=== PATIENT | male | born 1990 | race Caucasian/White ===

== ENCOUNTER → 2018-02-02 | Outpatient (CLI) | payer OTHER ==
[2018-02-02 17:15] LABS: Hematocrit 36.2 % (37.0-53.0); Hemoglobin 11.8 g/dL (13.5-17.5)
[2018-02-02 17:27] LABS: Protein, Urine Random 75.4 mg/dL (0.0-11.9)
[2018-02-02 17:35] LABS: Albumin, Blood 3.8 g/dL (3.4-5.0); Anion Gap 9 mmol/L (6-16); Blood Urea Nitrogen 50 mg/dL (8-24); Bun/Creatinine Ratio 12.9 (12.0-20.0); CO2, Blood 22 mmol/L (21-32); Calcium, Blood 8.6 mg/dL (8.5-10.1); Chloride, Blood 109 mmol/L (98-108); Creatinine, Blood 3.88 mg/dL (0.60-1.20); Glomerular Filtration Rate 20 (60-); Glucose, Blood 86 mg/dL (70-99); Potassium, Blood 4.1 mmol/L (3.5-5.5); Sodium, Blood 140 mmol/L (136-145)
== END ==
LOC: LAB SHORT 15:55 → OLS 15:55
PROVIDERS: Internal Medicine
DX: N02.8 Recurrent and persistent hematuria with other morphologic changes (principal); D64.9 Anemia, unspecified; E55.9 Vitamin D deficiency, unspecified; N18.4 Chronic kidney disease, stage 4 (severe)
CPT/HCPCS: 36415; 80069; 82570; 84156; 85014; 85018

== ENCOUNTER 2019-06-25 00:11 | Day surgery (SDC) | payer OTHER, MEDICARE | END 2019-06-25 16:05 | disposition home or self-care (01) | LOC: ATC 00:11 | DX: T86.11 Kidney transplant rejection (principal); Z94.0 Kidney transplant status | CPT/HCPCS: 96365; J2930 ==

== ENCOUNTER 2019-06-26 15:24 | Day surgery (SDC) | payer OTHER, MEDICARE | END 2019-06-26 16:17 | disposition home or self-care (01) | LOC: ATC 15:24 | DX: T86.11 Kidney transplant rejection (principal); Z94.0 Kidney transplant status; Y83.8 Other surgical procedures as the cause of abnormal reaction of the patient, or of later complication, without mention of misadventure at the time of the procedure | CPT/HCPCS: 96365; J2930 ==

== ENCOUNTER 2019-06-27 08:22 | Day surgery (SDC) | payer OTHER, MEDICARE | END 2019-06-27 09:23 | disposition home or self-care (01) | LOC: ATC 08:22 | DX: T86.11 Kidney transplant rejection (principal); Z94.0 Kidney transplant status | CPT/HCPCS: 96365; J2930 ==

== ENCOUNTER → 2020-04-25 | Outpatient (CLI) | payer OTHER, MEDICARE | END | disposition home or self-care (01) | LOC: LAB SHORT 14:40 → LAB 14:40 | DX: L08.0 Pyoderma (principal) | CPT/HCPCS: 87070; 87205 ==

== ENCOUNTER → 2020-08-24 | Outpatient (CLI) | payer OTHER, MEDICARE | END | disposition home or self-care (01) | LOC: LAB SHORT 16:29 → LAB 16:29 | DX: L08.0 Pyoderma (principal) | CPT/HCPCS: 87070; 87205 ==